=== PATIENT | male | born 1995 | race Two or more races ===

== ENCOUNTER 2016-09-23 20:56 | Emergency (ER) | payer OTHER ==
[2016-09-23] MEDS ORDERED: ONDANSETRON 4 MG ODT TAB ONE (21:26)
[2016-09-23] MEDS ORDERED: SODIUM CHLORIDE 0.9% 1,000 ML ONE (21:52)
[2016-09-23 21:56] LABS: ABSOLUTE NEUTROPHIL COUNT 11.9 K/mm3 (1.8-7.7); BASO % 0.2 % (0.2-1.0); EOS # 0.1 (0.0-0.5); EOS % 0.9 % (0.9-2.9); HEMATOCRIT 50.5 % (32.0-52.0); HEMOGLOBIN 16.7 gm/l (14.0-18.0); IMM NEUT # 0.1 K/mm3 (0-0.2); IMM NEUT% 0.6 % (0-1); LYMPH # 1.2 (1.0-4.8); LYMPH % 8.4 % (15-45); MEAN CELL VOLUME 86.3 fl (80.0-94.0); MEAN CORPUSCULAR HEMOGLOBIN 28.5 pg (27.0-31.0); MEAN CORPUSCULAR HGB CONC 33.1 g/dl (33.0-37.0); MEAN PLATELET VOLUME 8.7 fl (7.4-10.4); MONO # 0.6 (0.0-0.8); MONO % 4.2 % (4-12); NEUT % 85.7 % (43-75); PLATELET COUNT 265 K/mm3 (130-400); RED CELL DISTRIBUTION WIDTH 12.6 % (11.5-14.5)
[2016-09-23 22:09] LABS: GASTRIC PH 4; GASTROCCULT-GASTRIC OCC BLOOD NEGATIVE (NEGATIVE)
[2016-09-23 22:24] LABS: ALB/GLOB RATIO 1.8 (>1.0); ALBUMIN 5.1 gm/dL (3.5-5.7); ALT/SGPT 23 U/L (7-52); BLOOD UREA NITROGEN 18 mg/dL (7-25); BUN/CREATININE RATIO 23 (6-20); CALCIUM 10.1 mg/dL (8.6-10.3); LIPASE 24 U/L (11-82); MAGNESIUM 1.8 mg/dL (1.9-2.7)
[2016-09-23 22:34] LABS: INR 0.94; PROTHROMBIN TIME 9.9 SECONDS (9.3-11.4)
[2016-09-23] MEDS ORDERED: FAMOTIDINE 10 MG/ML 2ML VIAL ONE (22:56)
--- NOTE | 2016-09-24 07:58 | RAD ---
History: Hematemesis. Comparison: None. Technique: 2 views Findings: The soft tissue and bony structures are unremarkable. The heart size is appropriate. No infiltrate, effusion or pneumothorax is observed. The hilar and mediastinal structures are normal. Impression: 1. A negative 2 view chest
== END 2016-09-23 23:59 | disposition home or self-care (01) ==
LOC: ED 20:56
DX: K29.70 Gastritis, unspecified, without bleeding (principal); K92.0 Hematemesis
CPT/HCPCS: 83690; 82271; 82150; 85025; 80053; 83735; 83986; 85610; 71020; 99284 ×2; 96374; 96361; J7030; A9270